=== PATIENT | female | born 1990 | race Caucasian/White ===

== ENCOUNTER 2017-01-11 12:15 | Emergency (ER) | payer MEDICAID ==
[2017-01-11 12:53] VITALS: BP 115/80
[2017-01-11] MEDS ORDERED: Sodium Chloride 0.9% 1,000 ML IV SCH (13:15)
[2017-01-11] MEDS ORDERED: Doxycycline 100 MG in Sodium Chloride 0.9% 100 ML IV ONE (13:38)
--- NOTE | 2017-01-11 13:54 | EDM.PDOC ---
[id number] 6d WEAKNESS; FEVER Time Seen by Provider: 01/11/17 12:55 Source of Information: Reports: Patient, Family History Limitations: Reports: No Limitations - History of Present Illness INITIAL COMMENTS - FREE TEXT/NARRATIVE: pt arrived with a history of a fever since Thu. This has been as high as 103. Sh has total body aches. She did have a Uti and has finished 5 days of what sounds like bactrim. Onset: Gradual Duration: Day(s):, Getting Worse Location: Reports: Generalized Associated Symptoms: Reports: Headaches, Other ( body aches. 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: , Spontaneous Musculoskeletal History: Reports: Fracture Other Musculoskeletal History: l wrist fx Neurological History: Reports: Migraines - Infectious Disease History Infectious Disease History: Reports: Chicken Pox Social & Family History - Tobacco Use Smoking Status *Q: Current Some Day Smoker Years of Tobacco use: 5 Packs/Tins Daily: 0.2 Used Tobacco, but Quit: No Second Hand Smoke Exposure: Yes - Caffeine Use Caffeine Use: Reports: Coffee, Tea - Alcohol Use Days Per Week of Alcohol Use: 0 - Recreational Drug Use Recreational Drug Use: No ED ROS GENERAL - Review of Systems Review Of Systems: See Below Constitutional: Reports: Fever, Chills HEENT: Reports: No Symptoms Respiratory: Reports: No Symptoms Cardiovascular: Reports: No Symptoms Endocrine: Reports: No Symptoms GI/Abdominal: Reports: No Symptoms : Reports: Other (uti earlier in the week. She was on bactrim) Musculoskeletal: Reports: Muscle Pain, Muscle Stiffness Skin: Reports: No Symptoms ED EXAM, SEPSIS - Physical Exam Exam: See Below Text/Narrative:: pt arrived with a headache and body aches. She has been spiking high fevers. Exam Limited By: No Limitations General Appearance: Alert, Anxious, Moderate Distress Ears: Normal TMs Nose: Normal Inspection Throat/Mouth: Normal Inspection Head: Atraumatic Neck: Normal Inspection Respiratory/Chest: No Respiratory Distress Cardiovascular: Regular Rate, Rhythm GI/Abdominal Exam: Soft, Non-Tender (Female) Exam: Deferred Rectal (Female) Exam: Deferred Back: Normal Inspection Extremities: Normal Inspection Neurological: Alert, Oriented, Normal Cognition Psychiatric: Normal Affect Course - Vital Signs Last Recorded V/S: Last Vital Signs Temp 38.3 C H 01/11/17 15:03 Pulse 94 01/11/17 13:20 Resp 14 01/11/17 13:20 BP 115/80 01/11/17 13:20 Pulse Ox 100 01/11/17 13:20 - Orders/Labs/Meds Labs: Laboratory Tests 01/11/17 01/11/17 01/11/17 Range/Units 13:04 13:13 13:13 WBC 3.1 L (4.5-11.0) K/uL RBC 4.76 (3.30-5.50) M/uL Hgb 14.7 (12.0-15.0) g/dL Hct 42.9 (36.0-48.0) % MCV 90 (80-98) fL MCH 31 (27-31) pg MCHC 34 (32-36) % Plt Count 205 (150-400) K/uL Neut % (Auto) 73 H (36-66) % Lymph % (Auto) 12 L (24-44) % Hartley % (Auto) 9 H (2-6) % Eos % (Auto) 6 H (2-4) % Baso % (Auto) 0 (0-1) % Sodium (140-148) mmol/L Potassium (3.6-5.2) mmol/L Chloride (100-108) mmol/L Carbon Dioxide (21-32) mmol/L Anion Gap (5.0-14.0) mmol/L BUN (7-18) mg/dL Creatinine (0.6-1.0) mg/dL Est Cr Clr Drug Dosing mL/min Estimated GFR (MDRD) (>60) Glucose (74-106) mg/dL Calcium (8.5-10.1) mg/dL Total Bilirubin (0.2-1.0) mg/dL AST (15-37) U/L ALT (12-78) U/L Alkaline Phosphatase (46-116) U/L C-Reactive Protein 0.46 H (0.0-0.3) mg/dL Total Protein (6.4-8.2) g/dL Albumin (3.4-5.0) g/dL Globulin (2.3-3.5) g/dL Albumin/Globulin Ratio (1.2-2.2) Urine Color Yellow Urine Appearance Slightly cloudy Urine pH 7.0 (4.5-8.0) Ur Specific Martin 1.000 L (1.008-1.030) Urine Protein Negative (NEGATIVE) mg/dL Urine Glucose (UA) Normal (NEGATIVE) mg/dL Urine Ketones 15 H (NEGATIVE) mg/dL Urine Occult Blood Moderate (NEGATIVE) Urine Nitrite Negative (NEGATIVE) Urine Bilirubin Negative (NEGATIVE) Urine Urobilinogen Normal (NORMAL) mg/dL Ur Leukocyte Esterase Large (NEGATIVE) Urine RBC 0-5 (0-5) Urine WBC 5-10 H (0-5) Ur Epithelial Cells Few Amorphous Sediment Few Urine Bacteria Rare Urine Mucus Rare 01/11/17 Range/Units 13:13 WBC (4.5-11.0) K/uL RBC (3.30-5.50) M/uL Hgb (12.0-15.0) g/dL Hct (36.0-48.0) % MCV (80-98) fL MCH (27-31) pg MCHC (32-36) % Plt Count (150-400) K/uL Neut % (Auto) (36-66) % Lymph % (Auto) (24-44) % Hartley % (Auto) (2-6) % Eos % (Auto) (2-4) % Baso % (Auto) (0-1) % Sodium 135 L (140-148) mmol/L Potassium 4.2 (3.6-5.2) mmol/L Chloride 99 L (100-108) mmol/L Carbon Dioxide 26 (21-32) mmol/L Anion Gap 14.2 H (5.0-14.0) mmol/L BUN 7 (7-18) mg/dL Creatinine 0.8 (0.6-1.0) mg/dL Est Cr Clr Drug Dosing 72.92 mL/min Estimated GFR (MDRD) > 60 (>60) Glucose 77 (74-106) mg/dL Calcium 8.9 (8.5-10.1) mg/dL Total Bilirubin 0.2 (0.2-1.0) mg/dL AST 16 (15-37) U/L ALT 13 (12-78) U/L Alkaline Phosphatase 75 (46-116) U/L C-Reactive Protein (0.0-0.3) mg/dL Total Protein 8.1 (6.4-8.2) g/dL Albumin 3.9 (3.4-5.0) g/dL Globulin 4.2 H (2.3-3.5) g/dL Albumin/Globulin Ratio 0.9 L (1.2-2.2) Urine Color Urine Appearance Urine pH (4.5-8.0) Ur Specific Martin (1.008-1.030) Urine Protein (NEGATIVE) mg/dL Urine Glucose (UA) (NEGATIVE) mg/dL Urine Ketones (NEGATIVE) mg/dL Urine Occult Blood (NEGATIVE) Urine Nitrite (NEGATIVE) Urine Bilirubin (NEGATIVE) Urine Urobilinogen (NORMAL) mg/dL Ur Leukocyte Esterase (NEGATIVE) Urine RBC (0-5) Urine WBC (0-5) Ur Epithelial Cells Amorphous Sediment Urine Bacteria Urine Mucus Meds: Medications Discontinued Medications Generic Name Dose Route Start Last Admin Trade Name Freq PRN Reason Stop Dose Admin Acetaminophen 650 mg 01/11/17 14:55 01/11/17 15:03 Tylenol PO 01/11/17 14:56 650 mg NOW ONE Administration Sodium Chloride 1,000 mls @ 999 mls/hr 01/11/17 13:15 01/11/17 13:45 Normal Saline IV 999 mls/hr ASDIRECTED COSME Administration Doxycycline Hyclate 100 mg/ 100 mls @ 100 mls/hr 01/11/17 13:38 01/11/17 13: 59 Sodium Chloride IV 01/11/17 14:37 100 mls/hr ONETIME ONE Administration Ketorolac Tromethamine 30 mg 01/11/17 14:01 01/11/17 14:07 Toradol IVPUSH 01/11/17 14:02 30 mg ONETIME ONE Administration - Re-Assessments/Exams Free Text/Narrative Re-Assessment/Exam: 01/11/17 14:36 pt was found to have a wbc of 3.1. Her urine was cultured but did not look persistently infected. She was treated as a tick born illness, She was given doxycyline 100mg iv. Departure - Departure Time of Disposition: 15:10 Disposition: Home, Self-Care 01 Condition: Fair Clinical Impression: Anaplasmosis - Discharge Information Instructions: Ehrlichiosis and Anaplasmosis, [id number] Referrals: PCP,None [Primary Care Provider] - Forms: ED Department Discharge Care Plan Goals: will notify of tik studies and urine culture results, doxycyline 100mg bid motrin 600mg tid for body aches and fever.
[2017-01-11] MEDS ORDERED: Ketorolac 30 MG/ML SDV IVPUSH ONE (14:01)
[2017-01-11] MEDS ORDERED: Acetaminophen 325 MG Tab PO ONE (14:55)
== END 2017-01-11 15:33 | disposition home or self-care (01) ==
LOC: JP.ED 12:15
DX: A77.49 Other ehrlichiosis (principal); H54.7 Unspecified visual loss; G43.909 Migraine, unspecified, not intractable, without status migrainosus; F17.210 Nicotine dependence, cigarettes, uncomplicated; Z87.440 Personal history of urinary (tract) infections
CPT/HCPCS: 36415; 80053; 81001; 85025; 86140; 86618; 86666; 86753; 87086; 96365; 96375; 99284; A9270; J1885; J7030; J7040

== ENCOUNTER 2024-12-18 19:31 | Emergency (ER) | payer MEDICAID ==
[2024-12-18 19:54] VITALS: PULSE 98
[2024-12-18 19:55] VITALS: BP 145/100
== END 2024-12-18 21:01 | disposition home or self-care (01) ==
LOC: JP.ED 19:31
DX: A69.20 Lyme disease, unspecified (principal); F17.200 Nicotine dependence, unspecified, uncomplicated; Z79.899 Other long term (current) drug therapy
CPT/HCPCS: 99282; 99283

== ENCOUNTER 2025-04-02 18:15 | Emergency (ER) | payer MEDICAID ==
[2025-04-02 18:42] VITALS: BP 127/97; PULSE 80
[2025-04-02 18:56] LABS: BASOPHILS ABSOLUTE AUTO 0.05 K/uL (0.00-0.10); BASOPHILS PERCENT AUTO 0.9 % (0.1-1.3); EOSINOPHILS ABSOLUTE AUTO 0.12 K/uL (0.00-0.40); EOSINOPHILS PERCENT AUTO 2.3 % (0.0-5.4); IMMATURE GRAN PERCENT AUTO 0.2 % (0.0-0.7); LYMPHOCYTES ABSOLUTE AUTO 1.41 K/uL (0.8-3.3); LYMPHOCYTES PERCENT AUTO 26.6 % (11.4-47.7); MONOCYTES ABSOLUTE AUTO 0.31 K/uL (0.20-0.90); MONOCYTES PERCENT AUTO 5.8 % (3.3-12.6); NEUTROPHILS ABSOLUTE AUTO 3.40 K/uL (1.0-7.6); NEUTROPHILS PERCENT AUTO 64.2 % (40.0-78.1); PLATELET COUNT,PLT 263 K/uL (130-375); RED BLOOD CELL COUNT 3.89 M/uL (3.77-5.24); WHITE BLOOD CELL COUNT,WBC 5.3 K/uL (3.2-11.0)
[2025-04-02 18:58] LABS: IMMATURE GRAN ABSOLUTE AUTO 0.01 K/uL (0.00-0.23)
[2025-04-02 19:02] LABS: APPEARANCE,URINE CLEAR (CLEAR); GLUCOSE,URINE NEGATIVE (NEGATIVE); OCCULT BLOOD,URINE NEGATIVE (NEGATIVE)
[2025-04-02 19:11] LABS: AMPHETAMINES SCREEN, URINE NEGATIVE (NEGATIVE); METHADONE SCREEN, URINE NEGATIVE (NEGATIVE); METHAMPHETAMINES SCREEN, URINE NEGATIVE (NEGATIVE); OXYCODONE SCREEN,URINE NEGATIVE (NEGATIVE); PROPOXYPHENE SCREEN,URINE NEGATIVE (NEGATIVE); THC SCREEN,URINE 50 NG/ML NEGATIVE (NEGATIVE)
[2025-04-02 19:21] LABS: A/G RATIO 1.0 (1.2-2.2); ALANINE AMINOTRANSFERASE,ALT 67 U/L (12-78); ASPARTATE AMNIOTRANSFERASE,AST 106 U/L (15-37); BILIRUBIN TOTAL 0.3 mg/dL (0.2-1.0); BLOOD UREA NITROGEN,BUN 3 mg/dL (7-18); CARBON DIOXIDE,CO2 27 mmol/L (21-32); CHLORIDE,CL 103 mmol/L (100-108); CREATININE 0.5 mg/dL (0.6-1.0); EST CRCL DRUG DOSING (CG) 114.51 mL/min; ESTIMATED GFR 128 mL/min (>60); GLUCOSE RANDOM 89 mg/dL (74-106); POTASSIUM,K 3.5 mmol/L (3.6-5.2); PROTEIN TOTAL,TP 8.3 g/dL (6.4-8.2); SODIUM,NA 143 mmol/L (140-148)
== END 2025-04-02 19:42 ==
LOC: JP.ED 18:15
DX: F10.10 Alcohol abuse, uncomplicated (principal); F17.200 Nicotine dependence, unspecified, uncomplicated; Z79.899 Other long term (current) drug therapy
CPT/HCPCS: 36415; 80053; 80305-QW; 80307; 81003; 85025; 99284